=== PATIENT | male | born 1975 | race Caucasian/White ===

== ENCOUNTER 2020-10-30 00:37 | Emergency (ER) | payer BC, SELFPAY ==
[2020-10-30 00:47] VITALS: PULSE 0; RESP 0; BMI 26.6
--- NOTE | 2020-10-30 00:52 | PC.NURSE ---
Time of called at 0047; please see code sheet for further medications given during code.
--- NOTE | 2020-10-30 00:53 | ED_ITS ---
HPI - CPR General: Chief Complaint: Cardiac Arrest/CPR Stated Complaint: unresponsive Time Seen by Provider: 10/30/20 00:49 History of Present Illness: HPI narrative: 43-year-old male, unknown name or history. 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 911 was called, and he was found to be unresponsive on scene. He stopped breathing in the ambulance, and lost a pulse. He was intubated with an igel LMA, and CPR was started. First rhythm was evidently fine V. fib, he received 2 attempts at cardioversion with epinephrine and lidocaine. Next rhythm was asystole, for which he received 4 more milligrams of epinephrine on the way here without rhythm change. He pr esents with CPR in progress, and ventilation through LMA by bag valve. He is in asystole with no pulse. MD complaint: stopped breathing Onset (ago): minute(s) Timing confirmed by: other (Unknown) Place: other Bystander CPR performed: No Number of shocks delivered: 2 Initial findings in the field: unresponsive ROSC in the field: No Associated injuries: No Associated symptoms: other (Unknown) Known history of: other (Unknown) Treatments prior to arrival: other airway device, chest compressions, defibrillated shocks # (2), epinephrine mgs # (5), sodium bicarbonate and other (Lidocaine) Review of Systems General: Reports: ROS unobtainable due to medical condition Physical Exam Const: ORIENTATION/CONSCIOUSNESS: Yes Other orientation findings (Unresponsive) HENMT: COMMON NORMALS: normocephalic and Normal external nose present HEAD & SCALP: normocephalic and Acrocyanosis present FACE & SINUS: face symmetric and Acrocyanosis present NOSE: Normal external nose present MOUTH: other (Top dentures removed. Poor dentition on bottom) Eye: PUPIL: Yes Fixed pupils Resp: AUSCULTATION: diminished lung sounds Cardio: OTHER: Pulseless Neuro: KHAI COMA SCALE: document GCS findings Khai coma scale eye ope divya: None [place] coma scale verbal response: None Khai coma scale motor response: None Khai coma scale total score: 3 Course Vital Signs: Vital signs: Vital Signs Pulse Rate 0 L 10/30/20 00:47 Respiratory Rate 0 L 10/30/20 00:47 MDM - Cardiac Arrest/CPR MDM Narrative: Medical decision making narrative: For more milligrams of epinephrine given, for pulse checks showing asystole with pulselessness. On arrival, I gel was switched out for an 8-0 ET tube without complication. Rhythm did not deviate from asystole. The patient was given a total of 9 mg of epinephrine, 2 Amp of sodium bicarbonate, calcium, 1.6 mg of Narcan, without any change. Blood sugar was in the 300s. Chest x-ray taken during the code, shows an ET tube in place (mildly high, and advanced several cm with good bilateral breath sounds after xray) with no pneumothorax, hemothorax, effusion, cardiac enlargement, or other acute problem. There is some diffuse opacity present. Cause of cardiac arrest is not known, and we have no history available. With no change in rhythm from asystole, further resuscitative efforts thought to be futile. Patient pronounced. Critical Care Time Critical Care Time: Critical Care Time: Yes Total Critical Care Time: 30 Attestation: This case had a high probability of a clinically significant, sudden, or life threatening deterioration of this patient's condition which required my full and direct attention, intervention and personal management. Discharge Plan Discharge Patient Disposition: Clinical Impression: Cardiac arrest Condition: Coding Level of Care Code ED [employer]er for Tomy Fwrobyn Exam Detailed
--- NOTE | 2020-10-30 03:22 | XRR_ITS ---
PROCEDURE INFORMATION: Exam: XR Chest Exam date and time: 10/30/2020 3:22 AM Age: 43 years old Clinical indication: Other: Cardiac arrest. Cpr in process TECHNIQUE: Imaging protocol: XR of the chest. Views: 1 view. COMPARISON: No relevant prior studies available. FINDINGS: Tubes, catheters and devices: Endotracheal tube is above the thoracic inlet and should be advanced approximately 7 centimetres. Lungs: Hazy right basilar opacity which could be secondary to atelectasis or pneumonia. Pleural spaces: Unremarkable. No pleural effusion. No pneumothorax. Heart/Mediastinum: Unremarkable. No cardiomegaly. Bones/joints: Unremarkable. XR/XR chest 1V portable [id number] IMPRESSION: 1. Endotracheal tube is above the thoracic inlet and should be advanced approximately 7 centimetres. 2. Hazy right basilar opacity which could be secondary to atelectasis or pneumonia.
--- NOTE | 2020-10-30 16:09 | PC.NURSE ---
[facility] was given number to the pts . Within minutes [facility] called and wanted to arrange pickle maker of the pt. Pts Janie was contacted and she gave consent over the phone for the pt to be transported to the home. Marciano Diop with [facility] came and picked up the pt. [facility] was called back and given the information.
== END 2020-10-30 05:20 | disposition expired ==
LOC: ER 01:15
PROVIDERS: Emergency Provider Emergency Medicine
DX: I46.9 Cardiac arrest, cause unspecified (principal)
CPT/HCPCS: 31500; 71045; 99285; J0171; J2310; J3490